=== PATIENT | female | born 1980 | race Caucasian/White ===

== ENCOUNTER → 2016-12-19 | Outpatient (CLI) | payer OTHER ==
--- NOTE | 2016-12-20 08:59 | US ---
EXAMINATION: Left breast ultrasound HISTORY: Lump COMPARISON: 10/18/2016 TECHNIQUE: Grayscale and color Doppler images obtained of the left breast at the 8:00 position. FINDINGS: The patient was scheduled for a biopsy however the previously demonstrated complex cystic area at the 8:00 position now appears completely anechoic. Overall the size appears unchanged. No in creased color Doppler flow. There are a few adjacent small groups of cysts also noted. IMPRESSION: BI-RADS 2: Benign simple cysts noted within the region of concern. Please follow-up clinically.
== END | disposition home or self-care (01) ==
LOC: MW.US 13:09
PROVIDERS: ATTEND Obstetrics & Gynecology
DX: N63 Unspecified lump in breast (principal); N60.02 Solitary cyst of left breast
CPT/HCPCS: 76641-LT; 76641-LT-26